=== PATIENT | female | born 1950 | race Caucasian/White ===

== ENCOUNTER 2016-10-07 16:53 | Inpatient (IN) | payer OTHER ==
[~2016-10-07] VITALS: Ht 157.5 cm; Wt 147.0 kg
[~2016-10-07 16:53] MED LIST: BUPR100CR PO; ERYTOIN10 OP; HRT; LEVO137T2 PO; LOSA100T3 PO
[2016-10-07 16:56] VITALS: BP 174/91; PULSE 116; RESP 20; TEMP 99.9; O2SAT 94
[2016-10-07] MEDS ORDERED: CEPH500T PO (17:16)
[2016-10-07] MEDS ORDERED: MEDR10TA7 PO (17:16)
[2016-10-07] MEDS ORDERED: BUPR100T4 PO (17:16)
[2016-10-07] MEDS ORDERED: LEVO137T2 PO (17:16)
[2016-10-07] MEDS ORDERED: LOSA100T3 PO (17:16)
[2016-10-07 18:18] LABS: AUTOMATED NEUTROPHIL # 12.1 TH/MM3 (1.8-7.7); BASOPHIL # 0.2 TH/MM3 (0-0.2); BASOPHIL % 1.1 % (0.0-2.0); EOSINOPHIL # 0.2 TH/MM3 (0-0.4); EOSINOPHIL % 1.4 % (0.0-4.0); HEMATOCRIT 35.1 % (35.0-46.0); LYMPH % 8.6 % (9.0-44.0); LYMPHOCYTE # 1.3 TH/MM3 (1.0-4.8); MEAN CORPUSCULAR HEMOGLOBIN 27.8 PG (27.0-34.0); MEAN CORPUSCULAR HGB CONC 33.5 % (32.0-36.0); MONO % 7.6 % (0.0-8.0); NEUT % 81.3 % (16.0-70.0); PLATELET COUNT 228 TH/MM3 (150-450); RED BLOOD COUNT 4.23 MIL/MM3 (4.00-5.30); RED CELL DISTRIBUTION WIDTH 15.6 % (11.6-17.2); WHITE BLOOD COUNT 14.9 TH/MM3 (4.0-11.0)
--- NOTE | 2016-10-07 18:24 | PD ---
HPI Chief Complaint: Flank/Kidney Pain Time Seen by Provider: 17:33 Travel History International Travel<30 days: No Contact w/Intl Traveler<30days: No Traveled to known affect area: No History of Present Illness HPI Is a 66-year-old woman who presents to the emergency department complaining of right flank and back pain. She is a history of obesity hypothyroidism hypertension. She states that she went for some routine lab work and had some pyuria and so was treated for UTI. Over the past couple days she's had worsening redness over some previous surgical scars on her left wrist then her left leg and her right wrist. She had worsening pain redness and swelling and was started on antibiotics yesterday for cellulitis. She states today she had chills, but no definite fevers. She started getting right thoracic flank and back pain that was worsened today and so she came into the emergency department. Also recently she's been having abnormal uterine bleeding, she is many years postmenopausal. She saw Dr. stokes, her director of safety, and had an ultrasound done today of her endometrium. She denies any trauma or falls to the right thorax or back. She's not had previous infection symptoms like this. She has had trouble for legs in the past. No other complaints. History Past Medical History Narrative Medical Obesity Hypothyroidism Hypertension Endometrial hyperplasia Dilation and Curettage (D&C): Yes Social History Alcohol Use: Yes (RARE) Tobacco Use: No Allergies-Medications (Allergen,Severity, Reaction): Coded Allergies: No Known Allergies (Verified , 10/07/16) Reported Meds & Prescriptions Reported Meds & Active Scripts Active Reported Cephalexin 500 Mg Tab 500 Mg PO Q8H Medroxyprogesterone Acetate 10 Mg Tab 10 Mg PO DAILY Start day 21 Losartan-Hydrochlorothiazide 100-12.5 Mg Tab 1 Tab PO DAILY Levothyroxine (Levothyroxine Sodium) 137 Mcg Tab 137 Mcg PO DAILY Bupropion HCl 100 Mg Tab 100 Mg PO BID Review of Systems Except as stated in HPI: all other systems reviewed are Neg Physical Exam Narrative GENERAL: 66 year-old woman, no acute distress. SKIN: Warm and dry. Several areas of erythema and redness on the left wrist over a floor scar about 4 x 2 cm, similarly on the right wrist, and then with diffuse blotchy erythema tenderness and pain on the left leg with some increased swelling compared to the right. HEAD: Atraumatic. Normocephalic. EYES: Pupils equal and round. No scleral icterus. No injection or drainage. ENT: No nasal bleeding or discharge. Mucous membranes pink and moist. NECK: Trachea midline. No JVD. CARDIOVASCULAR: Regular rate and rhythm. No murmur. RESPIRATORY: No accessory muscle use. Clear to auscultation. Breath sounds equal bilaterally. CHEST: There is some scattered acne-like pustules but nothing convincing for shingles or zoster. She is tender with deep palpation on the right flank. GASTROINTESTINAL: Abdomen soft, non-tender, nondistended. Hepatic and splenic margins not palpable. MUSCULOSKELETAL: No obvious deformities. Some edema in the left leg. Diffuse blotchy erythema as discussed above. NEUROLOGICAL: Awake and alert. No obvious cranial nerve deficits. Motor grossly within normal limits. Normal speech. PSYCHIATRIC: Appropriate mood and affect; insight and judgment normal. Data Data Last Documented VS Vital Signs Date Time Temp Pulse Resp B/P Pulse Ox O2 Delivery O2 Flow Rate FiO2 10/07/16 18:30 99.5 111 20 133/62 93 Orders Complete Blood Count With Diff (10/07/16 17:33) Comprehensive Metabolic Panel (10/07/16 17:33) Urinalysis - C+S If Indicated (10/07/16 17:33) Iv Access Insert/Monitor (10/07/16 17:33) Lipase (10/07/16 17:33) Chest, Pa & Lat (10/07/16 ) Lactic Acid (10/07/16 18:03) Blood Culture (10/07/16 18:03) Westergren Sedimentation Rate (10/07/16 18:03) C-Reactive Protein (Crp) (10/07/16 18:03) Clindamycin Inj (Cleocin Inj) (10/07/16 19:00) Sodium Chlor 0.9% 1000 Ml Inj (Ns 1000 M (10/07/16 19:00) Sodium Chlor 0.9% 1000 Ml Inj (Ns 1000 M (10/07/16 19:00) Urine Culture (10/07/16 18:25) Labs Laboratory Tests Test 10/07/16 10/07/16 10/07/16 17:55 18:00 18:25 White Blood Count 14.9 TH/MM3 Red Blood Count 4.23 MIL/MM3 Hemoglobin 11.8 GM/DL Hematocrit 35.1 % Mean Corpuscular Volume 83.0 FL Mean Corpuscular Hemoglobin 27.8 PG Mean Corpuscular Hemoglobin 33.5 % Concent Red Cell Distribution Width 15.6 % Platelet Count 228 TH/MM3 Mean Platelet Volume 9.9 FL Neutrophils (%) (Auto) 81.3 % Lymphocytes (%) (Auto) 8.6 % Monocytes (%) (Auto) 7.6 % Eosinophils (%) (Auto) 1.4 % Basophils (%) (Auto) 1.1 % Neutrophils # (Auto) 12.1 TH/MM3 Lymphocytes # (Auto) 1.3 TH/MM3 Monocytes # (Auto) 1.1 TH/MM3 Eosinophils # (Auto) 0.2 TH/MM3 Basophils # (Auto) 0.2 TH/MM3 CBC Comment AUTO DIFF Differential Total Cells 100 Counted Neutrophils % (Manual) 72 % Band Neutrophils % 15 % Lymphocytes % 12 % Monocytes % 1 % Neutrophils # (Manual) 13.0 TH/MM3 Differential Comment FINAL DIFF MANUAL Platelet Estimate NORMAL Platelet Morphology Comment NORMAL Red Cell Morphology Comment NORMAL Erythrocyte Sedimentation Rate 69 mm/hr Sodium Level 137 MEQ/L Potassium Level 4.1 MEQ/L Chloride Level 102 MEQ/L Carbon Dioxide Level 25.5 MEQ/L Anion Gap 10 MEQ/L Blood Urea Nitrogen 18 MG/DL Creatinine 0.99 MG/DL Estimat Glomerular Filtration 56 ML/MIN Rate Random Glucose 126 MG/DL Calcium Level 8.4 MG/DL Total Bilirubin 0.5 MG/DL Aspartate Amino Transf 87 U/L (AST/SGOT) Alanine Aminotransferase 82 U/L (ALT/SGPT) Alkaline Phosphatase 107 U/L Total Protein 8.0 GM/DL Albumin 2.9 GM/DL Lipase 155 U/L Lactic Acid Level 1.0 mmol/L Urine Collection Type CLEAN CATCH Urine Color YELLOW Urine Turbidity CLEAR Urine pH 6.0 Urine Specific [place] 1.022 Urine Protein 30 mg/dL Urine Glucose (UA) NEG mg/dL Urine Ketones NEG mg/dL Urine Occult Blood NEG Urine Nitrite NEG Urine Bilirubin NEG Urine Leukocyte Esterase SMALL Urine WBC 6-8 /hpf Urine WBC Clumps RARE Urine Squamous Epithelial 0-5 /hpf Cells Urine Bacteria RARE /hpf Microscopic Urinalysis Comment CULTURE INDICATED MDM Medical Decision Making Medical Screen Exam Complete: Yes Emergency Medical Condition: Yes Interpretation(s) LABS: CBC remarkable for white count 14.9 thousand Sedimentation rate 69 CMP remarkable for mildly elevated AST and ALT Lactate 1.0 Lipase 155 CRP UA: Few white blood cells. Chest x-ray: No evidence of acute cardiopulmonary disease. Differential Diagnosis Cellulitis, disseminated infection, zoster, endocarditis, other Narrative Course Medical decision making INITIAL: 66 year-old woman with bizarre with appears to be multifocal cellulitis concerning for some kind of disseminated infection. She's had chills and low-grade fevers today. She is tachycardic. She presents of right flank pain with no obvious etiology for her symptoms. Symptoms could possibly related to early zoster. Some kind of septic emboli seems less likely. She discussed started on oral antibiotics today. She looks overall well. We'll check labs, inflammatory markers, cultures, chest x-ray, reassess. Diagnosis Primary Impression: Sepsis Qualified Code: A41.9 - Sepsis, due to unspecified organism Additional Impression: Cellulitis Qualified Code: L03.818 - Cellulitis of other specified site Mariusz Aguilar MD Oct 07, 2016 18:24
[2016-10-07 18:25] LABS: HEMO FLAGS AUTO DIFF
--- NOTE | 2016-10-07 18:29 | RADHPO ---
EXAM DATE/TIME: 10/07/2016 18:19 [facility] COMPARISON: CHEST PA & LAT, August 04, 2012, 14:42. INDICATIONS : Patient states lower right side pain after walking. MEDICAL HISTORY : Hypertension. SURGICAL HISTORY : None. ENCOUNTER: Initial ACUITY: 2 days PAIN SCORE: 0/10 LOCATION: Bilateral chest FINDINGS: PA and lateral views of the chest demonstrate the lungs to be symmetrically aerated without evidence of mass, infiltrate or effusion. The cardiomediastinal contours are unremarkable. Osseous structure s are intact. CONCLUSION: No evidence of acute cardiopulmonary disease. Steven Reynoso MD on October 07, 2016 at 18:27 Board Certified Radiologist. This report was verified electronically.
[2016-10-07 18:30] VITALS: BP 133/62; PULSE 111; RESP 20; TEMP 99.5; O2SAT 93
[2016-10-07 18:34] LABS: CHLORIDE 102 MEQ/L (98-107); POTASSIUM 4.1 MEQ/L (3.5-5.1); SODIUM (NA) 137 MEQ/L (136-145)
[2016-10-07 18:38] LABS: ANION GAP 10 MEQ/L (5-15); BICARBONATE 25.5 MEQ/L (21.0-32.0); BLOOD UREA NITROGEN 18 MG/DL (7-18)
[2016-10-07 18:41] LABS: ALT (GPT) 82 U/L (10-53); AST (GOT) 87 U/L (15-37); GLOMERULAR FILTRATION RATE 56 ML/MIN (>89)
[2016-10-07 18:41] LABS: BLOOD, URINE NEG (NEG); GLUCOSE,URINE NEG (NEG); KETONE, URINE NEG (NEG); NITRITE,URINE NEG (NEG)
[2016-10-07 18:43] LABS: TOTAL BILIRUBIN ADULT 0.5 MG/DL (0.2-1.0)
[2016-10-07 18:44] LABS: ALKALINE PHOSPHATASE 107 U/L (45-117)
[2016-10-07 18:46] LABS: BANDS 15 % (0-6); PLATELET ESTIMATE SMEAR NORMAL (NORMAL); PLATELET MORPHOLOGY NORMAL (NORMAL); POLYS (SEG NEUTROPHILS) 72 % (16-70); SCAN/DIFF FINAL DIFF MANUAL; WBC DIFF SAMPLE 100
[2016-10-07 18:55] LABS: METHOD OF COLLECTION CLEAN CATCH; SQUAMOUS EPITHELIAL CELL URINE 0-5 /hpf (0-5); URINE COLOR YELLOW (YELLW/STRAW)
[2016-10-07 18:56] LABS: BACTERIA, URINE RARE /hpf; COMMENT (UR) CULTURE INDICATED; CULTURE IF INDICATED CULTURE INDICATED
[2016-10-07] MEDS ORDERED: CLINDAMYCIN INJ 600 MG in SODIUM CHLORIDE 0.9% INJ 100 ML IV ONE (19:00)
[2016-10-07] MEDS ORDERED: SODIUM CHLOR 0.9% 1000 ML INJ 1,000 ML IV SCH ×2 (19:00)
[2016-10-07 19:22] VITALS: BP 122/64; PULSE 102; RESP 20; TEMP 99.5; O2SAT 94
[2016-10-07 20:30] VITALS: BP 128/58; PULSE 95; RESP 20; O2SAT 99
[2016-10-07 22:00] VITALS: BP_SYST 133; BP_SYST 142; BP_DIAS 52; BP_DIAS 88; PULSE 93; RESP 18; TEMP 98.7; TEMP 99.8; O2SAT 95
[2016-10-07] MEDS ORDERED: ONDANSETRON HCL 4 MG/2 ML VIAL IVP PRN (22:00)
[2016-10-07] MEDS ORDERED: SENNOSIDES 8.6 MG TAB PO PRN (22:00)
[2016-10-07] MEDS ORDERED: ACETAMINOPHEN 325 MG TAB PO PRN (22:00)
[2016-10-07] MEDS ORDERED: MAGNESIUM HYDROXIDE SUSP 30 ML CUP PO PRN (22:00)
[2016-10-07] MEDS ORDERED: NALOXONE HCL 0.4 MG/ML AMP IV PRN (22:00)
[2016-10-07] MEDS ORDERED: SODIUM CHLORIDE 0.9% FLUSH 5 ML FLUSH FLUSH PRN (22:00)
[2016-10-07] MEDS: SODIUM CHLOR 0.9% 1000 ML INJ 1,000 ML IV SCH (23:19)
[2016-10-07] MEDS: HEPARIN SODIUM - SQ 10,000 UNITS/ML VIAL SQ SCH (23:25)
[2016-10-08] VITALS (7 sets, daily range): BP systolic 101–130; BP diastolic 56–80; PULSE 72–88; RESP 16–20; TEMP 97.5–98.8; O2SAT 95–97
[2016-10-08] MEDS ORDERED: CLINDAMYCIN INJ 600 MG in SODIUM CHLORIDE 0.9% INJ 100 ML IV SCH (03:00)
[2016-10-08 05:54] LABS: BASOPHIL % 0.2 % (0.0-2.0); EOSINOPHIL # 0.3 TH/MM3 (0-0.4); EOSINOPHIL % 2.9 % (0.0-4.0); HEMATOCRIT 31.7 % (35.0-46.0); LYMPH % 17.6 % (9.0-44.0); LYMPHOCYTE # 1.8 TH/MM3 (1.0-4.8); MEAN CORPUSCULAR HEMOGLOBIN 26.4 PG (27.0-34.0); MEAN CORPUSCULAR HGB CONC 31.9 % (32.0-36.0); MONO % 10.6 % (0.0-8.0); NEUT % 68.7 % (16.0-70.0); PLATELET COUNT 200 TH/MM3 (150-450); RED BLOOD COUNT 3.83 MIL/MM3 (4.00-5.30); RED CELL DISTRIBUTION WIDTH 15.7 % (11.6-17.2); WHITE BLOOD COUNT 10.2 TH/MM3 (4.0-11.0)
[2016-10-08 05:55] LABS: HEMO FLAGS DIFF FINAL
[2016-10-08 06:08] LABS: POTASSIUM 3.7 MEQ/L (3.5-5.1)
[2016-10-08 06:12] LABS: BICARBONATE 26.2 MEQ/L (21.0-32.0)
[2016-10-08] MEDS ORDERED: DIATRIZOATE MEGLUM/DIATRIZOATE SOD 9 ML CUP PO ONE (07:45)
[2016-10-08] MEDS: SODIUM CHLOR 0.9% 1000 ML INJ 1,000 ML IV SCH ×2 (07:49→16:45)
[2016-10-08] MEDS ORDERED: INFLUENZA VIRUS VACCINE (QUADRIVALENT) 0.5 ML SYR IM ONE (09:00)
[2016-10-08] MEDS: SODIUM CHLORIDE 0.9% FLUSH 5 ML FLUSH FLUSH SCH ×2 (09:00→21:00)
[2016-10-08] MEDS: PIPERACIL-TAZO 3.375 GM PREMIX 50 ML IV SCH ×3 (09:05→21:51)
[2016-10-08] MEDS: HEPARIN SODIUM - SQ 10,000 UNITS/ML VIAL SQ SCH ×2 (09:07→21:52)
--- NOTE | 2016-10-08 09:55 | MH ---
cc: RUSSELL HICKS MD DATE OF ADMISSION: 10/07/2016 CHIEF COMPLAINT Flank pain, right side. HISTORY OF PRESENT ILLNESS This is a 66-year-old female with past medical/surgical history significant for obesity, hypothyroidism, hypertension, endometrial hyperplasia, D&C x2, came to the ER at [facility] complaining of right flank pain and back pain. She stated that she had some routine lab work and had a urinalysis done which showed urinary tract infection, and she was treated for the urinary tract infection. The past couple of days she has worsening redness over a previous surgical scar on her left wrist and left leg and right wrist. She had worsening pain, redness and swelling and was treated with an antibiotic yesterday for cellulitis. She states today that she has chills but no definitive fever. She started getting right thoracic and flank pain that was worse and decided to come to the ER. Other than that she denies any other complaints and nothing significant. PAST MEDICAL/SURGICAL HISTORY As dictated above. SOCIAL HISTORY She denies smoking. Drinks alcohol rarely. Denies any drug abuse. Lives at home alone. Works at a [employer]. FAMILY HISTORY Significant for mother's side with diabetes mellitus. ALLERGIES No known drug allergies. MEDICATIONS 1. Keflex 500 mg q.8h. 2. Medroxyprogesterone 10 mg p.o. daily. 3. Losartan/hydrochlorothiazide 100/12.5 mg p.o. daily. 4. Levothyroxine 137 mcg p.o. daily. 5. Bupropion 100 mg p.o. daily. 6. p.o. b.i.d. REVIEW OF SYSTEMS Positive for redness in the area of both wrists and left leg area. Mild right flank pain. Obesity. All other review of systems is negative. PHYSICAL EXAMINATION GENERAL: This is a 66-year-old obese female sitting in a chair, not in acute distress. VITAL SIGNS: Temperature 97.5, heart rate 77, respirations 16, blood pressure 112/60. O2 saturation 97% on room air. HEENT: Normocephalic, atraumatic. EOMI. PERRL. Oral mucosa moist. NECK: Supple. No visible thyromegaly or neck mass. Trachea central. CV: Regular rate and rhythm. LUNGS: Respirations clear to auscultation bilaterally. ABDOMEN: Soft and nontender. Obese. Bowel sounds audible. EXTREMITIES: Mild erythema of the both wrist area and left leg area. No cyanosis or clubbing. Full range of motion of all extremities. NEUROLOGIC: Awake, alert, oriented x4. No focal deficits. SKIN: Warm and dry. PSYCHIATRIC: The patient is cooperative. Mood and affect is normal. LABORATORY CBC is unremarkable except for WBC count 14.9, now 10.2; hemoglobin 11.8, now 10.1; hematocrit 35.1, now 31.7. BMP is unremarkable except for GFR 78 low, glucose random 118 high, calcium 7.9. Urine examination done shows protein 30, small leukocyte esterase, 68 wbc's. C-reactive protein is high at 14.0. AST 87, ALT 82, alkaline phosphatase 107, calcium 8.4 low, albumin 2.9 low, lipase 155, total protein 8.0. Blood cultures x2 done are negative so far. Urine culture pending. IMAGING Chest x-ray was done and shows no evidence of acute cardiopulmonary disease. ASSESSMENT AND PLAN 1. This is a 66-year-old female who came to the ER diagnosed with right flank pain most likely from the urinary tract infection. The patient is on Zosyn and clindamycin. Will monitor urinary tract infection. 2. Cellulitis of both wrists as well as left lower leg. The patient is on antibiotic, Zosyn and clindamycin. Infectious Disease is consulted. Blood cultures negative so far. Urine culture negative so far. Further recommendation per patient patient's progress. 3. History of hypertension. Continue home medication. 4. History of hypothyroidism. Check TSH and free T4. The patient is on levothyroxine 137 mcg p.o. daily. 5. History of depression. Continue home medication. 6. History of endometrial hyperplasia. The patient is on medroxyprogesterone 10 mg p.o. daily for 21 days. 7. DVT prophylaxis with heparin 5000 units subcutaneous q.12h. 8. GI prophylaxis with Protonix 50 mg p.o. daily. 9. We are going to manage the patient on a daily basis and make recommendations on a daily basis. Russell Hicks MD EA/JURGEN /9:19 AM /9:28 AM
[2016-10-08] MEDS ORDERED: VANCOMYCIN INJ 1,500 MG in SODIUM CHLORID 0.9% 500 ML INJ 500 ML IV SCH (10:00)
[2016-10-08] MEDS ORDERED: Vancomycin Consult Pharmacy 1 EA OTHER SCH (10:00)
--- NOTE | 2016-10-08 10:10 | PD.CONS ---
History of Present Illness Service Infectious Disease Consult Requested By Dr Phelan Reason for Consult Cellulitis in 4 limbs and abdomen Primary Care Physician Artur Theodore MD Diagnoses: (1) Cellulitis History of Present Illness Patient says she just finished a antibiotic course ( ? Keflex) prescribed by Dr Mohamud for a UTI that she did not know she had and then two days ago she got up with some chills and noticed a burning pain in the scars on her left and right wrist and that her left leg was red and painful. She came to ER and also she noticed pain in rt flank area. She was running a low grade temperature and had a leukocytosis so she was admitted. Redness of limbs and pain in flank is better today. Review of Systems Constitutional: COMPLAINS OF: Fever, Chills Endocrine: DENIES: Polydipsia, Polyuria, Polyphagia Eyes: DENIES: Blurred vision, Diplopia, Eye inflammation Ears, nose, mouth, throat: DENIES: Hearing loss, Nasal discharge, Oral lesions Respiratory: DENIES: Apneas, Cough, Shortness of breath Cardiovascular: DENIES: Chest pain, Dyspnea on Exertion Gastrointestinal: DENIES: Abdominal pain, Constipation, Diarrhea Genitourinary: DENIES: Urinary frequency, Urinary incontinence Musculoskeletal: COMPLAINS OF: Muscle aches, DENIES: Joint Swelling, Neck pain Integumentary: COMPLAINS OF: Abnormal pigmentation, DENIES: Pruritus Hematologic/lymphatic: DENIES: Bruising Neurologic: DENIES: Headache, Localized weakness, Seizures Psychiatric: DENIES: Anxiety, Confusion Past Family Social History Allergies: Coded Allergies: No Known Allergies (Verified , 10/07/16) Past Medical History Obesity Hypothyroidism Hypertension Endometrial hyperplasia Depression Past Surgical History D & C Umbilical hernia repair Bilateral wrist surgery Reported Medications IV Zosyn and Clindamycin Family History Non contributory Social History Non smoker No recent travel Works with senior [employer] Has a cat at home Physical Exam Vital Signs Vital Signs Date Time Temp Pulse Resp B/P Pulse Ox O2 Delivery O2 Flow Rate FiO2 10/08/16 04:00 97.5 77 16 112/60 97 10/08/16 00:00 98.8 88 18 101/56 96 10/07/16 22:00 99.8 93 18 142/88 95 10/07/16 22:00 98.7 89 20 133/52 98 10/07/16 20:30 95 20 128/58 99 10/07/16 19:22 99.5 102 20 122/64 94 10/07/16 19:22 20 10/07/16 18:30 99.5 111 20 133/62 93 10/07/16 16:56 99.9 116 20 174/91 94 Physical Exam GENERAL: This is a obese patient, in no apparent distress. SKIN: Left leg warm and red from ankle till just below knee but seems improved. Left wrist redness along old surgical scar.Same on rt wrist. HEAD: Atraumatic. Normocephalic. No temporal or scalp tenderness. EYES: Pupils equal round and reactive. Extraocular motions intact. No scleral icterus. No injection or drainage. ENT: Nose without bleeding, purulent drainage or septal hematoma. Throat without erythema, tonsillar hypertrophy or exudate. Uvula midline. Airway patent. NECK: Trachea midline. No JVD or lymphadenopathy. Supple, nontender, no meningeal signs. CARDIOVASCULAR: Regular rate and rhythm without murmurs, gallops, or rubs. RESPIRATORY: Clear to auscultation. Breath sounds equal bilaterally. No wheezes , rales, or rhonchi. GASTROINTESTINAL: Abdomen soft, non-tender, nondistended. No hepato-splenomegaly , or palpable masses. No guarding. MUSCULOSKELETAL: Extremities without clubbing, cyanosis, or edema. No joint tenderness, effusion, or edema noted. No calf tenderness. Negative Homans sign bilaterally. NEUROLOGICAL: Awake and alert. Cranial nerves II through XII intact. Motor and sensory grossly within normal limits. Five out of 5 muscle strength in all muscle groups. Normal speech. Laboratory Laboratory Tests Test 10/07/16 10/07/16 10/07/16 10/08/16 17:55 18:00 18:25 05:25 White Blood Count 14.9 10.2 Red Blood Count 4.23 3.83 Hemoglobin 11.8 10.1 Hematocrit 35.1 31.7 Mean Corpuscular Volume 83.0 83.0 Mean Corpuscular Hemoglobin 27.8 26.4 Mean Corpuscular Hemoglobin 33.5 31.9 Concent Red Cell Distribution Width 15.6 15.7 Platelet Count 228 200 Mean Platelet Volume 9.9 10.0 Neutrophils (%) (Auto) 81.3 68.7 Lymphocytes (%) (Auto) 8.6 17.6 Monocytes (%) (Auto) 7.6 10.6 Eosinophils (%) (Auto) 1.4 2.9 Basophils (%) (Auto) 1.1 0.2 Neutrophils # (Auto) 12.1 7.0 Lymphocytes # (Auto) 1.3 1.8 Monocytes # (Auto) 1.1 1.1 Eosinophils # (Auto) 0.2 0.3 Basophils # (Auto) 0.2 0.0 CBC Comment AUTO DIFF DIFF FINAL Differential Total Cells 100 Counted Neutrophils % (Manual) 72 Band Neutrophils % 15 Lymphocytes % 12 Monocytes % 1 Neutrophils # (Manual) 13.0 Differential Comment FINAL DIFF MANUAL Platelet Estimate NORMAL Platelet Morphology Comment NORMAL Red Cell Morphology Comment NORMAL Erythrocyte Sedimentation Rate 69 Sodium Level 137 142 Potassium Level 4.1 3.7 Chloride Level 102 106 Carbon Dioxide Level 25.5 26.2 Anion Gap 10 10 Blood Urea Nitrogen 18 14 Creatinine 0.99 0.75 Estimat Glomerular Filtration 56 78 Rate Random Glucose 126 118 Calcium Level 8.4 7.9 Total Bilirubin 0.5 Aspartate Amino Transf 87 (AST/SGOT) Alanine Aminotransferase 82 (ALT/SGPT) Alkaline Phosphatase 107 C-Reactive Protein 14.00 Total Protein 8.0 Albumin 2.9 Lipase 155 Lactic Acid Level 1.0 Urine Collection Type CLEAN CATCH Urine Color YELLOW Urine Turbidity CLEAR Urine pH 6.0 Urine Specific [place] 1.022 Urine Protein 30 Urine Glucose (UA) NEG Urine Ketones NEG Urine Occult Blood NEG Urine Nitrite NEG Urine Bilirubin NEG Urine Leukocyte Esterase SMALL Urine WBC 6-8 Urine WBC Clumps RARE Urine Squamous Epithelial 0-5 Cells Urine Bacteria RARE Microscopic Urinalysis Comment CULTURE INDICATED Date/Time Procedure Status Source Growth 10/07/16 18:25 Urine Culture Received Urine Clean Catch Pending 10/07/16 18:00 Aerobic Blood Culture Received Blood Peripheral Pending 10/07/16 18:00 Anaerobic Blood Culture Received Blood Peripheral Pending Result Diagram: 10/08/16 0525 10/08/16 0525 Assessment and Plan Problem List: (1) Cellulitis Status: Acute Plan: Follow blood cultures Follow clinically Stop IV Clindamycin Start IV Vancomycin Continue IV Zosyn (2) UTI (urinary tract infection) Status: Acute Plan: Agree with CT scan Follow urine cultures Continue the IV Zosyn pending culture Problem Qualifiers (1) Cellulitis: Qualified Code: L03.818 - Cellulitis of other specified site (2) UTI (urinary tract infection): Emma Cotto MD Oct 08, 2016 10:09
[2016-10-08 11:04] LABS: FREE T4 1.14 NG/DL (0.76-1.46)
[2016-10-08] MEDS ORDERED: IOHEXOL 350 MG/ML 10 ML VIAL (for RAD DIAG) IV ONE (12:21)
[2016-10-08] MEDS: VANCOMYCIN INJ 2,400 MG in SODIUM CHLORID 0.9% 500 ML INJ 500 ML IV SCH (13:18)
[2016-10-08] MEDS: PANTOPRAZOLE SOD 40 MG DELAYED RELEASE TAB PO SCH (13:22)
--- NOTE | 2016-10-08 15:12 | RADHPO ---
EXAM DATE/TIME: 10/08/2016 12:09 [facility] COMPARISON: No previous studies available for comparison. INDICATIONS: Right upper quadrant pain. Evaluate for deep tissue infection/abscess. IV CONTRAST: 95 cc Omnipaque 350 (iohexol) IV ORAL CONTRAST: Prescribed oral contrast ingested. RADIATION DOSE: 22.03 CTDIvol (mGy) MEDICAL HISTORY: Diabetes mellitus type 2. Hernia, hiatal. Hypertension. SURGICAL HISTORY: Umbilical hernia repair. ENCOUNTER: Initial ACUITY: 1 day PAIN SCALE: 5/10 LOCATION: Right flank TECHNIQUE: Volumetric scanning of the abdomen was performed. Using automated exposure control and adjustment of the mA and/or kV according to patient size, radiation dose was kept as low as reasonably achievable to obtain optimal diagnostic quality images. FINDINGS: The lung bases are clear. There is mild fatty replacement to the liver. Gallbladder is small and co ntracted. The spleen, pancreas, adrenals and kidneys are unremarkable. I get a good look at the subcutaneous tissues of the abdomen and lower chest wall. These are unremar kable. I do not see etiology for patient's pain. CONCLUSION: Moderate fatty replacement to the liver otherwise negative for an acute process. Alberto Hogan MD FACR on October 08, 2016 at 13:00 Board Certified Radiologist. This report was verified electronically.
[2016-10-09] VITALS: BP 119/59; PULSE 78; RESP 12; TEMP 97.5; O2SAT 92
[2016-10-09] MEDS: PIPERACIL-TAZO 3.375 GM PREMIX 50 ML IV SCH ×4 (02:54→20:32)
[2016-10-09] MEDS: SODIUM CHLOR 0.9% 1000 ML INJ 1,000 ML IV SCH ×2 (03:49→14:09)
[2016-10-09] MEDS: VANCOMYCIN INJ 2,400 MG in SODIUM CHLORID 0.9% 500 ML INJ 500 ML IV SCH (06:18)
[2016-10-09 06:41] LABS: AUTOMATED NEUTROPHIL # 7.7 TH/MM3 (1.8-7.7); BASOPHIL % 0.4 % (0.0-2.0); EOSINOPHIL # 0.3 TH/MM3 (0-0.4); HEMATOCRIT 32.9 % (35.0-46.0); HEMO FLAGS DIFF FINAL; LYMPH % 17.2 % (9.0-44.0); LYMPHOCYTE # 1.8 TH/MM3 (1.0-4.8); MEAN CELL VOLUME 83.1 FL (80.0-100.0); MEAN CORPUSCULAR HGB CONC 32.5 % (32.0-36.0); MONO % 6.9 % (0.0-8.0); NEUT % 72.5 % (16.0-70.0); PLATELET COUNT 235 TH/MM3 (150-450); RED BLOOD COUNT 3.95 MIL/MM3 (4.00-5.30); RED CELL DISTRIBUTION WIDTH 15.8 % (11.6-17.2); WHITE BLOOD COUNT 10.5 TH/MM3 (4.0-11.0)
[2016-10-09 06:52] LABS: CHLORIDE 107 MEQ/L (98-107); POTASSIUM 4.2 MEQ/L (3.5-5.1); SODIUM (NA) 143 MEQ/L (136-145)
[2016-10-09 06:57] LABS: ANION GAP 8 MEQ/L (5-15); BLOOD UREA NITROGEN 10 MG/DL (7-18)
[2016-10-09 07:00] LABS: ALT (GPT) 88 U/L (10-53); AST (GOT) 55 U/L (15-37); GLOMERULAR FILTRATION RATE 62 ML/MIN (>89)
[2016-10-09 07:01] LABS: TOTAL BILIRUBIN ADULT 0.6 MG/DL (0.2-1.0)
[2016-10-09 07:03] LABS: ALKALINE PHOSPHATASE 98 U/L (45-117)
[2016-10-09 08:00] VITALS: BP 130/77; PULSE 71; RESP 18; TEMP 97.9; O2SAT 96
[2016-10-09] MEDS: SODIUM CHLORIDE 0.9% FLUSH 5 ML FLUSH FLUSH SCH ×2 (09:00→20:33)
--- NOTE | 2016-10-09 09:38 | HHI.PR ---
Subjective History of Present Illness Patient feel better no acute issue Redness of both wrist and left lower leg better. Review of Systems Constitutional Constitutional: Fatigue Integumentary Skin Remarks redness of both wrist and left lower leg Vitals/Results Intake & Output 10/08/16 10/08/16 10/09/16 15:00 23:00 07:00 Intake Total 1413 ml 1530 ml Balance 1413 ml 1530 ml Intake Oral 600 ml 480 ml IV Total 813 ml 1050 ml # Voids 4 1 Vital Signs Vital Signs Date Time Temp Pulse Resp B/P Pulse Ox O2 Delivery O2 Flow Rate FiO2 10/09/16 08:00 97.9 71 18 130/77 96 10/09/16 00:00 97.5 78 12 119/59 92 10/08/16 20:23 98.8 85 16 125/61 95 10/08/16 16:00 98.0 72 18 130/80 96 10/08/16 12:00 98.0 88 18 122/70 95 10/08/16 10:00 98.0 88 20 122/70 95 CBC/BMP: 10/09/16 0621 10/09/16 0621 Lab Results Laboratory Tests Test 10/09/16 06:21 White Blood Count 10.5 TH/MM3 Red Blood Count 3.95 MIL/MM3 Hemoglobin 10.7 GM/DL Hematocrit 32.9 % Mean Corpuscular Volume 83.1 FL Mean Corpuscular Hemoglobin 27.0 PG Mean Corpuscular Hemoglobin 32.5 % Concent Red Cell Distribution Width 15.8 % Platelet Count 235 TH/MM3 Mean Platelet Volume 9.7 FL Neutrophils (%) (Auto) 72.5 % Lymphocytes (%) (Auto) 17.2 % Monocytes (%) (Auto) 6.9 % Eosinophils (%) (Auto) 3.0 % Basophils (%) (Auto) 0.4 % Neutrophils # (Auto) 7.7 TH/MM3 Lymphocytes # (Auto) 1.8 TH/MM3 Monocytes # (Auto) 0.7 TH/MM3 Eosinophils # (Auto) 0.3 TH/MM3 Basophils # (Auto) 0.0 TH/MM3 CBC Comment DIFF FINAL Differential Comment Sodium Level 143 MEQ/L Potassium Level 4.2 MEQ/L Chloride Level 107 MEQ/L Carbon Dioxide Level 28.0 MEQ/L Anion Gap 8 MEQ/L Blood Urea Nitrogen 10 MG/DL Creatinine 0.91 MG/DL Estimat Glomerular Filtration 62 ML/MIN Rate Random Glucose 126 MG/DL Calcium Level 8.0 MG/DL Total Bilirubin 0.6 MG/DL Aspartate Amino Transf 55 U/L (AST/SGOT) Alanine Aminotransferase 88 U/L (ALT/SGPT) Alkaline Phosphatase 98 U/L Total Protein 7.3 GM/DL Albumin 2.5 GM/DL Physical Exam General General Appearance: Well Developed, Well Nourished, No Acute Distress, Comfortable Eyes Eye Exam: Pupils Equal, Pupils Reactive, Sclera White, Extraocular Movement Intact Throat Throat Exam: Oral Mucosa [place] & Moist, Oral Pharynx Normal Neck Neck Exam: Neck Supple, Trachea Midline Pulmonary Resp Exam: Clear Bilaterally, Breath Sounds Equal, No Distress Cardiology CV Exam: Regular, Normal Sinus Rhythm, Good Perfusion Gastrointestinal/Abdomen GI Exam: Soft, Non-Tender, Bowel Sounds Present Musculoskeletal MS Exam: Normal Tone Integumentary Skin Remarks erythema of both wrist and left lower leg ...improving. Neurologic Neuro Exam: Alert, Awake, Oriented, Speech Clear, Moving All Extremities, Senior Business Manager Equal, No Focal Deficits VTE Prophylaxis VTE Prophylaxis Meds: Heparin PUD Prophylasis PUD Prophylaxis: Protonix Assessment/Plan Assessment/Plan ASSESSMENT AND PLAN 1. This is a 66-year-old female who came to the ER diagnosed with right flank pain most likely from the urinary tract infection. The patient is on Zosyn and vancomycin. Will monitor urinary tract infection. 2. Cellulitis of both wrists as well as left lower leg. The patient is on antibiotic, Zosyn and vancomycin. Infectious Disease input noted. Blood cultures negative so far. Urine culture negative so far. Further recommendation per patient patient's progress. 3. History of hypertension. Continue home medication. 4. History of hypothyroidism. Checked TSH and free T4...noted. The patient is on levothyroxine 137 mcg p.o. daily. 5. History of depression. Continue home medication. 6. History of endometrial hyperplasia. The patient is on medroxyprogesterone 10 mg p.o. daily for 21 days. 7. DVT prophylaxis with heparin 5000 units subcutaneous q.12h. 8. GI prophylaxis with Protonix 50 mg p.o. daily. 9. Mild High LFTs will monitor. We are going to manage the patient on a daily basis and make recommendations on a daily basis. Discussed Condition with: Patient Russell Fay MD Oct 09, 2016 09:38
[2016-10-09] MEDS: PANTOPRAZOLE SOD 40 MG DELAYED RELEASE TAB PO SCH (09:49)
[2016-10-09] MEDS: HEPARIN SODIUM - SQ 10,000 UNITS/ML VIAL SQ SCH ×2 (10:00→22:33)
[2016-10-09] MEDS: LEVOTHYROXINE SODIUM 25 MCG TAB PO SCH (10:26)
[2016-10-09] MEDS: LEVOTHYROXINE SODIUM 112 MCG TAB PO SCH (10:26)
[2016-10-09] MEDS: LOSARTAN 50 MG TAB PO SCH (10:27)
[2016-10-09] MEDS: HYDROCHLOROTHIAZIDE 12.5 MG CAP PO SCH (10:27)
[2016-10-09] MEDS: buPROPion HCL 100 MG TAB PO SCH ×2 (10:28→20:33)
[2016-10-09 12:00] VITALS: BP 123/79; PULSE 80; RESP 19; TEMP 97.7; O2SAT 95
[2016-10-09 15:54] VITALS: BP 114/78; PULSE 77; RESP 19; TEMP 97.6; O2SAT 96
[2016-10-09 20:23] VITALS: BP 145/78; PULSE 77; RESP 18; TEMP 99.4; O2SAT 97
[2016-10-10] MEDS: SODIUM CHLOR 0.9% 1000 ML INJ 1,000 ML IV SCH ×2 (00:14→08:57)
[2016-10-10] MEDS: VANCOMYCIN INJ 2,400 MG in SODIUM CHLORID 0.9% 500 ML INJ 500 ML IV SCH (00:14)
[2016-10-10 00:23] VITALS: BP 142/61; PULSE 79; RESP 16; TEMP 98.5; O2SAT 97
[2016-10-10] MEDS: PIPERACIL-TAZO 3.375 GM PREMIX 50 ML IV SCH ×2 (02:51→08:00)
[2016-10-10 06:26] LABS: AUTOMATED NEUTROPHIL # 7.3 TH/MM3 (1.8-7.7); BASOPHIL % 0.3 % (0.0-2.0); EOSINOPHIL # 0.3 TH/MM3 (0-0.4); HEMATOCRIT 30.6 % (35.0-46.0); HEMO FLAGS DIFF FINAL; LYMPH % 15.9 % (9.0-44.0); LYMPHOCYTE # 1.6 TH/MM3 (1.0-4.8); MEAN CELL VOLUME 83.4 FL (80.0-100.0); MEAN CORPUSCULAR HEMOGLOBIN 26.9 PG (27.0-34.0); MEAN CORPUSCULAR HGB CONC 32.3 % (32.0-36.0); MONO % 7.4 % (0.0-8.0); NEUT % 73.4 % (16.0-70.0); PLATELET COUNT 221 TH/MM3 (150-450); RED BLOOD COUNT 3.67 MIL/MM3 (4.00-5.30); RED CELL DISTRIBUTION WIDTH 15.9 % (11.6-17.2); WHITE BLOOD COUNT 9.9 TH/MM3 (4.0-11.0)
[2016-10-10] MEDS: LEVOTHYROXINE SODIUM 112 MCG TAB PO SCH (06:43)
[2016-10-10] MEDS: LEVOTHYROXINE SODIUM 25 MCG TAB PO SCH (06:43)
[2016-10-10 07:21] LABS: CHLORIDE 106 MEQ/L (98-107); POTASSIUM 4.2 MEQ/L (3.5-5.1); SODIUM (NA) 142 MEQ/L (136-145)
[2016-10-10 07:24] LABS: ANION GAP 7 MEQ/L (5-15); BICARBONATE 29.5 MEQ/L (21.0-32.0); BLOOD UREA NITROGEN 7 MG/DL (7-18)
[2016-10-10 07:27] LABS: ALT (GPT) 66 U/L (10-53); AST (GOT) 33 U/L (15-37); GLOMERULAR FILTRATION RATE 73 ML/MIN (>89)
[2016-10-10 07:29] LABS: TOTAL BILIRUBIN ADULT 0.4 MG/DL (0.2-1.0)
[2016-10-10 07:30] LABS: ALKALINE PHOSPHATASE 85 U/L (45-117)
[2016-10-10 08:00] VITALS: BP 142/71; PULSE 73; RESP 19; TEMP 97.2; O2SAT 94
[2016-10-10] MEDS: LOSARTAN 50 MG TAB PO SCH (08:58)
[2016-10-10] MEDS: SODIUM CHLORIDE 0.9% FLUSH 5 ML FLUSH FLUSH SCH (08:58)
[2016-10-10] MEDS: HYDROCHLOROTHIAZIDE 12.5 MG CAP PO SCH (08:59)
[2016-10-10] MEDS: buPROPion HCL 100 MG TAB PO SCH (08:59)
[2016-10-10] MEDS: PANTOPRAZOLE SOD 40 MG DELAYED RELEASE TAB PO SCH (08:59)
[2016-10-10] MEDS: HEPARIN SODIUM - SQ 10,000 UNITS/ML VIAL SQ SCH (09:00)
--- NOTE | 2016-10-10 09:41 | HHI.PR ---
Subjective History of Present Illness Patient feel better no acute issue Redness of both wrist and left lower leg better. wants to go home today ok to [facility] Home today d/w VITALY Valdez. Review of Systems Constitutional Constitutional: Fatigue Integumentary Skin Remarks redness of both wrist and left lower leg Vitals/Results Intake & Output 10/09/16 10/09/16 10/10/16 15:00 23:00 07:00 Intake Total 480 ml 1590 ml 1106 ml Balance 480 ml 1590 ml 1106 ml Intake Oral 480 ml IV Total 1590 ml 1106 ml # Voids 1 Vital Signs Vital Signs Date Time Temp Pulse Resp B/P Pulse Ox O2 Delivery O2 Flow Rate FiO2 10/10/16 08:00 97.2 73 19 142/71 94 10/10/16 00:23 98.5 79 16 142/61 97 10/09/16 20:23 99.4 77 18 145/78 97 10/09/16 15:54 97.6 77 19 114/78 96 10/09/16 12:00 97.7 80 19 123/79 95 CBC/BMP: 10/10/16 0600 10/10/16 0714 Lab Results Laboratory Tests Test 10/10/16 10/10/16 06:00 07:14 White Blood Count 9.9 TH/MM3 Red Blood Count 3.67 MIL/MM3 Hemoglobin 9.9 GM/DL Hematocrit 30.6 % Mean Corpuscular Volume 83.4 FL Mean Corpuscular Hemoglobin 26.9 PG Mean Corpuscular Hemoglobin 32.3 % Concent Red Cell Distribution Width 15.9 % Platelet Count 221 TH/MM3 Mean Platelet Volume 9.8 FL Neutrophils (%) (Auto) 73.4 % Lymphocytes (%) (Auto) 15.9 % Monocytes (%) (Auto) 7.4 % Eosinophils (%) (Auto) 3.0 % Basophils (%) (Auto) 0.3 % Neutrophils # (Auto) 7.3 TH/MM3 Lymphocytes # (Auto) 1.6 TH/MM3 Monocytes # (Auto) 0.7 TH/MM3 Eosinophils # (Auto) 0.3 TH/MM3 Basophils # (Auto) 0.0 TH/MM3 CBC Comment DIFF FINAL Differential Comment Sodium Level 142 MEQ/L Potassium Level 4.2 MEQ/L Chloride Level 106 MEQ/L Carbon Dioxide Level 29.5 MEQ/L Anion Gap 7 MEQ/L Blood Urea Nitrogen 7 MG/DL Creatinine 0.79 MG/DL Estimat Glomerular Filtration 73 ML/MIN Rate Random Glucose 123 MG/DL Calcium Level 7.7 MG/DL Total Bilirubin 0.4 MG/DL Aspartate Amino Transf 33 U/L (AST/SGOT) Alanine Aminotransferase 66 U/L (ALT/SGPT) Alkaline Phosphatase 85 U/L Total Protein 6.6 GM/DL Albumin 2.3 GM/DL Physical Exam General General Appearance: Well Developed, Well Nourished, No Acute Distress, Comfortable Eyes Eye Exam: Pupils Equal, Pupils Reactive, Sclera White, Extraocular Movement Intact Throat Throat Exam: Oral Mucosa [place]rike & Moist, Oral Pharynx Normal Neck Neck Exam: Neck Supple, Trachea Midline Pulmonary Resp Exam: Clear Bilaterally, Breath Sounds Equal, No Distress Cardiology CV Exam: Regular, Normal Sinus Rhythm, Good Perfusion Gastrointestinal/Abdomen GI Exam: Soft, Non-Tender, Bowel Sounds Present Musculoskeletal MS Exam: Normal Tone Integumentary Skin Remarks erythema of both wrist and left lower leg ...improving. Neurologic Neuro Exam: Alert, Awake, Oriented, Speech Clear, Moving All Extremities, Clothing Room Supervisor Equal, No Focal Deficits VTE Prophylaxis VTE Prophylaxis Meds: Heparin PUD Prophylasis PUD Prophylaxis: Protonix Assessment/Plan Assessment/Plan ASSESSMENT AND PLAN 1. This is a 66-year-old female who came to the ER diagnosed with right flank pain most likely from the urinary tract infection. The patient is on Zosyn and vancomycin. Will monitor urinary tract infection. 2. Cellulitis of both wrists as well as left lower leg. The patient is on antibiotic, Zosyn and vancomycin. Infectious Disease input noted. Blood cultures negative so far. Urine culture negative so far. Further recommendation per patient patient's progress. 3. History of hypertension. Continue home medication. 4. History of hypothyroidism. Checked TSH and free T4...noted. The patient is on levothyroxine 137 mcg p.o. daily. 5. History of depression. Continue home medication. 6. History of endometrial hyperplasia. The patient is on medroxyprogesterone 10 mg p.o. daily for 21 days. 7. DVT prophylaxis with heparin 5000 units subcutaneous q.12h. 8. GI prophylaxis with Protonix 50 mg p.o. daily. 9. Mild High LFTs will monitor. wants to go home today ok to DC Home today d/w RN Courtney. f/u with pcp/infectious disease 3 days. Discussed Condition with: Patient Russell Fay MD Oct 10, 2016 09:41
[2016-10-10] MEDS ORDERED: MUPI2OIN TOPICAL (09:44)
[2016-10-10] MEDS ORDERED: DOXY100C35 PO (09:47)
[2016-10-10] MEDS ORDERED: PHARMACY ORDERED LAB XX ONE (17:45)
--- NOTE | 2016-10-15 08:13 | MD ---
cc: RUSSELL HICKS MD ADMISSION DATE: 10/08/2016 DISCHARGE DATE: 10/10/2016 Okay to discharge patient. CONDITION AT THE TIME OF DISCHARGE Satisfactory ACTIVITY As tolerated. DIET Cardiac diet ALLERGIES NO KNOWN DRUG ALLERGIES. DISCHARGE MEDICATIONS Include: 1. Doxycycline 100 mg p.o. b.i.d. 2. Bactroban 2% ointment applied affected area twice a day. 3. Bupropion 100 mg p.o. daily 4. Levothyroxine 137 mcg p.o. daily 5. Losartan/Hydrochlorothiazide 100/12.5 p.o. daily 6. Medroxyprogesterone 10 mg p.o. daily FOLLOW UP The patient advised to follow up with PCP and infectious disease in one week. ADMITTING DIAGNOSIS 1. Right flank pain secondary to urinary tract infection which is almost resolved. 2. Cellulitis of both wrists, as well as the left lower leg which has almost resolved. 3. History of hypertension. 4. History of hypothyroidism. 5. History of depression. 6. History of endometrial hyperplasia, the patient on medroxyprogesterone. HOSPITAL COURSE This is a 66-year female admitted with right flank pain and cellulitis of both wrists, as well as left lower leg. The patient was given empiric antibiotic. The patient remained stable. No acute event happened. The patient discharged in a satisfactory condition. Further details in the medical record. Russell Hicks MD EA/MYKE /12:41 PM /8:02 AM
[2016-12-08] MEDS ORDERED: PROM6.256 PO (12:46)
[2016-12-08] MEDS ORDERED: CENTTAB PO (12:46)
== END 2016-10-10 12:12 | disposition home or self-care (01) | DRG 690 ==
LOC: PHED 16:53 → INTOOBSV 19:19 → PHEDA 19:19 → PH3A 22:08 → OBSVTOIN 10-08 13:44
PROVIDERS: ADMIT Family Medicine; ATTEND Family Medicine
DX: N39.0 Urinary tract infection, site not specified (principal); L03.116 Cellulitis of left lower limb; I10 Essential (primary) hypertension; L03.114 Cellulitis of left upper limb; L03.113 Cellulitis of right upper limb; E03.9 Hypothyroidism, unspecified; E66.9 Obesity, unspecified; F32.9 Major depressive disorder, single episode, unspecified; Z23 Encounter for immunization
CPT/HCPCS: 71020; 74160; 80048; 80053; 81001; 83605; 83690; 84439; 84443; 85007; 85025; 85027; 85652; 86140; 87040; 87086; 90471; 90686; 96374; G0008; G0378; J1644; J2543; J3370; J7030; J7040; Q2038; Q9963; Q9967

== ENCOUNTER → 2016-12-08 | Outpatient (CLI) | payer OTHER ==
[~2016-12-08] MED LIST changes: -BUPR100CR PO; +BUPR100T4 PO; +CENTTAB PO; +DOXY100C35 PO; -ERYTOIN10 OP; -HRT; +MEDR10TA7 PO; +MUPI2OIN TOPICAL; +PROM6.256 PO
[2016-12-08 12:54] LABS: AUTOMATED NEUTROPHIL # 7.5 TH/MM3 (1.8-7.7); BASOPHIL % 0.2 % (0.0-2.0); EOSINOPHIL # 0.4 TH/MM3 (0-0.4); EOSINOPHIL % 3.2 % (0.0-4.0); HEMATOCRIT 35.7 % (35.0-46.0); HEMO FLAGS DIFF FINAL; LYMPH % 22.7 % (9.0-44.0); LYMPHOCYTE # 2.7 TH/MM3 (1.0-4.8); MEAN CORPUSCULAR HEMOGLOBIN 26.4 PG (27.0-34.0); MEAN CORPUSCULAR HGB CONC 31.4 % (32.0-36.0); MONO % 10.2 % (0.0-8.0); NEUT % 63.7 % (16.0-70.0); PLATELET COUNT 281 TH/MM3 (150-450); RED BLOOD COUNT 4.25 MIL/MM3 (4.00-5.30); RED CELL DISTRIBUTION WIDTH 16.8 % (11.6-17.2); WHITE BLOOD COUNT 11.7 TH/MM3 (4.0-11.0)
== END ==
LOC: CPRE 12:08
PROVIDERS: ATTEND Obstetrics & Gynecology
DX: Z01.810 Encounter for preprocedural cardiovascular examination (principal); Z01.812 Encounter for preprocedural laboratory examination; N95.0 Postmenopausal bleeding
CPT/HCPCS: 36415; 85025

== ENCOUNTER → 2016-12-10 | Day surgery (SDC) | payer OTHER ==
[~2016-12-10] VITALS: Ht 163.8 cm; Wt 145.9 kg
[~2016-12-10] MED LIST changes: +*LABETALOL HCL 100 MG/20 ML VIAL PERIprocedural Use ONLY ONE; +*RESP: ALBUTEROL 2.5 MG/3 ML NEB (PRN) PERIprocedural Use ONLY NEB ONE; +*morphine SULFATE 8 MG/ML PERIprocedure ONLY ONE; +ACETAMINOPHEN 1000 MG/100 ML VIAL IV ONE; +ACETAMINOPHEN 1000 MG/100 ML VIAL IV SCH; +CHLORHEXIDINE GLUCONATE 2 % 1 PACK (2 CLOTHS) TOPICAL PRN; +DO NOT ADM ANY ANTICOAGULANT DRUGS PRN; +FAMOTIDINE 20 MG/2 ML VIAL ONE; +INSULIN HUMAN REGULAR 1,000 UNITS/10 ML VIAL SQ PRN; +KETOROLAC TROMETHAMINE 60 MG/2 ML (IM) VIAL IM ONE; +LACTATED RINGER'S 1000 ML IV PRN; +METOCLOPRAMIDE HCL 10 MG/2 ML VIAL IV PUSH PRN; +METOPROLOL TARTRATE 25 MG TAB PO PRN; +MIDAZOLAM HCL 2 MG/2 ML VIAL ONE; +MORPHINE SULFATE 4 MG/ML INJ ONE; +ONDANSETRON HCL 4 MG/2 ML VIAL IV PUSH ONE; +POVIDONE IODINE 5% (ANTISEPSIS KIT) 4 APPLICATIONS EACH NARE PRN; +PROPOFOL 200 MG/20 ML AMP IV ONE; +SODIUM CHLORID 0.9% 500 ML IV PRN; +ceFAZolin 1,000 MG/NS 100 ML IV SCH
[2016-12-10 06:13] VITALS: BP 157/70; PULSE 93; RESP 18; TEMP 98.4; O2SAT 95
--- NOTE | 2016-12-10 09:25 | MH ---
cc: SONY OTT DATE OF ADMISSION 12/10/2016 ADMISSION DIAGNOSIS Postmenopausal bleeding HISTORY OF PRESENT ILLNESS The patient is a 66-year-old single white female para 0 with a history of postmenopausal bleeding since September of 2012. She had D&C September 2012 that returned with polyps. D&C in 2013 had returned with complex hyperplasia with atypia. She has been treated monthly with Provera and continued to bleed. D&C in 2014 returned benign tissue. She had persistent monthly bleeding and is now admitted for evaluation. PAST MEDICAL HISTORY Surgery included: 1. D&C in 2012, and 2. Umbilical hernia repair in 2009. MEDICATIONS Include: 1. Synthroid 2. Losartan 3. Wellbutrin 4. Provera monthly ALLERGIES None TRANSFUSIONS None OBSTETRICAL HISTORY None SOCIAL HISTORY She works in [employer]. Alcohol, tobacco and drugs are none. FAMILY HISTORY Noncontributory PHYSICAL EXAM This is a morbidly obese white female. VITAL SIGNS: Stable. HEENT: Exam is normal. CHEST: Chest is clear. HEART: Regular rate. BREASTS: Symmetrical. ABDOMEN: Benign, obese. PELVIC EXAM: Normal external genitalia and BUS. Vagina is normal. Cervix normal. Uterus is normal size and shape. Adnexa nonpalpable. The most recent ultrasound from 10/07/2016 showed a uterus that is 7.3 cm. Abnormal endometrium. Right ovary normal, left could not be seen. ASSESSMENT As above. PLAN She is now admitted for hysteroscopy and D&C. While in the office, I explained the procedures, the risks, benefits and complications and possible need for additional treatment pending findings. The patient would like to proceed. MD CHEYENNE Lynn/MYKE /8:42 PM /9:06 AM BERTIN
[2016-12-10 10:21] VITALS: BP 139/65; PULSE 82; RESP 18; TEMP 97.7; O2SAT 95
--- NOTE | 2016-12-13 09:13 | MP ---
cc: SONY OTT DATE OF SURGERY: 12/10/2016 PREOPERATIVE DIAGNOSIS Postmenopausal bleeding. POSTOPERATIVE DIAGNOSIS Postmenopausal bleeding. PROCEDURE Hysteroscopy and D&C. ANESTHESIA General endotracheal. SURGEON Sony Ott MD ESTIMATED BLOOD LOSS Less than 20 cc. FLUIDS 600 cc crystalloid. OBJECTIVE FINDINGS Following the induction of adequate general endotracheal anesthesia, the patient was prepped and draped supine on the operating table in the dorsal lithotomy position in the usual sterile fashion, with the bladder being drained via in-and-out catheterization. Exam under anesthesia revealed a normal size and shape uterus, no adnexal masses. A heavy weighted speculum was placed in the posterior fornix of the vagina. The anterior lip of the cervix was grasped with a single-tooth tenaculum. The cervix and uterus sounded to 8 cm. The cervix was dilated to #18 Hanks dilator. The hysteroscope was passed revealing a normal endocervix and a normal-appearing endometrium. The scope was then withdrawn. Endocervical curettings were obtained with a small serrated, endometrium with a small sharp curette. Polyp forceps were passed to cigar packer and picker loose tissue and debris. The tenaculum site was sutured with 2-0 chromic for hemostasis. All instruments were removed. All counts were correct. The patient's legs were taken out of the stirrups. She was awakened and taken to the recovery room in good condition. MD CHEYENNE Lynn/JURGEN /7:57 AM /9:09 AM
== END | disposition home or self-care (01) ==
LOC: HSDC 05:33
PROVIDERS: ATTEND Obstetrics & Gynecology
DX: N95.0 Postmenopausal bleeding (principal); I10 Essential (primary) hypertension; R06.02 Shortness of breath; G47.30 Sleep apnea, unspecified
CPT/HCPCS: 00952; 58558; 88305; 94664; J0131; J0690; J1885; J2250; J2270; J2405; J3010; J7120; J7613